=== PATIENT | male | born 1995 | race African-American/Black ===

== ENCOUNTER 2017-01-02 08:47 | Observation (INO) | payer OTHER ==
--- NOTE | ~2017-01-02 | CT2 ---
[facility] A Service of [facility] RADIOLOGY TEXT RESULTS PATIENT: RAO CHEN LOCATION: [facility] [id number] : [birth year] UNIT #: [id number] AGE: [address]: Denis Gregg MD SEX: M ORDER DR: [id number] [facility] [address] [place]. [place], [place] [address] [id number] E MR#: [id number] Acc #: [id number] NAME: RAO CHEN : 1995 SEX: M STUDY DATE/TIME: 01/02/2017 12:02 UNIT: HE ROOM: STUDY DESCRIPTION: CT Abd and Pelv W Cont Attending Physician: Reji Ballard D.O. Ordering Physician: Reji Ballard D.O. Primary Care Physician: No Primary Care Physician MEDICAL IMAGING REPORT This report is preliminary unless electronic signature is present EXAM CT abdomen and pelvis with contrast, 01/02/2017. HISTORY 21-year-old male with right lower quadrant abdominal pain today. COMPARISON None TECHNIQUE Helical scan performed through the abdomen and pelvis following administration of oral and IV contrast. Coronal and sagittal reformatted images. This CT exam was performed with one or more of the following radiation dose reduction techniques: automatic exposure control, adjustment of mA and/or kV according to patient size, and iterative reconstruction. FINDINGS Visualized lung bases are unremarkable. The liver, spleen, pancreas, gallbladder, both adrenal glands, and both kidneys are within normal limits. Abdominal aorta normal in course and caliber without dissection. Small bowel unremarkable without obstruction. The appendix is markedly dilated and fluid-filled. There is a suspected appendicolith within the appendiceal lumen. There is moderately extensive periappendiceal inflammatory stranding and free fluid. No loculated drainable abscess. No evidence of perforation. Colon otherwise unremarkable. The urinary bladder and prostate gland are within normal limits. Small amount of free pelvic fluid. No acute bony abnormality. [facility] A Service of [facility] RADIOLOGY TEXT RESULTS PATIENT: RAO CHEN LOCATION: [facility] 4609-15 : [birth year] UNIT #: [id number] AGE: [address]: Denis Gregg MD SEX: M ORDER DR: IMPRESSION Acute appendicitis. There is moderate free fluid along the right pericolic gutter and extending into the pelvis. No loculated drainable collection to suggest abscess. No evidence of free intraperitoneal air. Dictated by... Janak Watt M.D. THIS IS AN ELECTRONICALLY VERIFIED REPORT Janak Watt M.D. at 01/03/2017 8:57 AM MERARI/dora TD: 01/02/2017 13:06 JOB #: [id number] MEDICAL IMAGING REPORT Page 1 of 1 COPY
--- NOTE | ~2017-01-02 | CO ---
Unit #: [id number] #: [id number] Patient: RAO CHEN [id number] [address] [address] [id number] I MR#: [id number] NAME: RAO CHEN ROOM: 462 Age: 21 Sex: M Admission Date: 01/02/2017 : 1995 Attending Physician: Denis Gregg M.D. Primary Care Physician: Primary Care Physician No Consultation Date: 01/02/2017 CONSULTATION REPORT BRIEF HISTORY OF PRESENT ILLNESS The patient is a 21-year-old gentleman with acute onset of right lower quadrant abdominal pain, some nausea. No vomiting. No diarrhea. No history of similar type pain. PAST MEDICAL HISTORY None. PAST SURGICAL HISTORY None. SOCIAL HISTORY No smoking. No alcohol. FAMILY HISTORY Negative for GI malignancy. REVIEW OF SYSTEMS No cardiopulmonary complaints at this time. Else, 10 systems have been reviewed and negative. PHYSICAL EXAMINATION GENERAL: He is awake, alert, and appropriate. VITAL SIGNS: Currently afebrile. HEENT: Unremarkable. NECK: Supple. No JVD. Trachea midline. LUNGS: Clear to auscultation. Bilateral breath sounds symmetric. CARDIOVASCULAR: Regular rate and rhythm. ABDOMEN: Soft, nontender, and nondistended. I palpate no masses. No hepatosplenomegaly. EXTREMITIES: No clubbing, cyanosis, or edema. DIAGNOSTIC STUDIES LABORATORY RESULTS: Show a white count of 16. IMAGING STUDIES: CT scan shows inflammation in the pericecal region. ASSESSMENT Appendicitis. PLAN Recommend laparoscopic appendectomy. Unit #: [id number] #: [id number] Patient: RAO CHEN Dictated by... Leatha Clancy/clifford TD: 01/02/2017 13:59 JOB #: [id number] CONSULTATION REPORT Page 1 of 1 X Denis Gregg MD X CONSULTATION REPORT
--- NOTE | ~2017-01-02 | OR ---
Unit #: [id number] #: [id number] Patient: RAO CHEN [id number] [address] [address] [id number] [place] MR#: [id number] NAME: RAO CHEN ROOM: 462 Date of Procedure: 01/02/2017 Admission Date: 01/02/2017 Surgeon: Denis Gregg M.D. : 1995 Attending Physician: Denis Gregg M.D. Primary Care Physician: Primary Care Physician No OPERATIVE REPORT PREOPERATIVE DIAGNOSIS Appendicitis. POSTOPERATIVE DIAGNOSIS Purulent appendicitis. PROCEDURE PERFORMED Laparoscopic appendectomy. ANESTHESIA General endotracheal anesthesia. ESTIMATED BLOOD LOSS Minimal. IV FLUIDS 800 crystalloid. COMPLICATIONS None. INDICATIONS FOR PROCEDURE The patient is a 21-year-old with appendicitis. DESCRIPTION OF PROCEDURE The patient was taken to the operating theater and placed in the supine position. General anesthesia was induced. The abdomen was prepped and draped. An infraumbilical incision was then made. A Veress needle was placed intra-abdominally. The abdomen was insufflated to 15 mmHg with CO2. Under direct vision, I placed a 5-mm port. The patient was then placed in Trendelenburg. I placed right lower quadrant 10 mm, left lower quadrant 5 mm ports. General inspection of the abdomen revealed acute appendicitis with purulence. This was retrocecal. I mobilized the colon with Bovie electrocautery. I was able to take the appendix down in a retrograde fashion. I fired a KASSIE stapler across the mesoappendix and appendix and then the inflammatory tissue along the lateral sidewall of the ascending colon. This was then placed in an Endobag and removed. I then removed the ports and closed the fascia with 0 Vicryl and skin with 4-0 Vicryl. The patient tolerated the procedure well and was sent to recovery room in good condition. Unit #: [id number] #: [id number] Patient: RAO CHEN Dictated by... Leatha Clancy/clifford TD: 01/02/2017 16:12 JOB #: [id number] OPERATIVE REPORT Page 1 of 1 X Denis Gregg MD PROCEDURE OPERATIVE NOTE
[2017-01-02 10:16] LABS: BASOPHIL% 0.2 % (0-2.5); HEMATOCRIT 44.6 % (38.0-50.0); HEMOGLOBIN 14.4 gm/dL (13.0-16.0); LYMPHOCYTE# 0.9 X10e3 (1.0-3.5); LYMPHOCYTE% 5.3 % (17.0-45.0); MEAN CELL VOLUME 80.8 FL (83-96); MEAN CORPUSCULAR HGB CONC 32.2 g/dL (30-36); MEAN PLATELET VOLUME 9.4 FL (6.5-11.5); MONOCYTE# 0.8 X10e3 (0-1.0); MONOCYTE% 4.7 % (3.0-12.0); NEUTROPHIL# 14.7 X10e3 (1.5-7.1); NEUTROPHIL% 89.8 % (40-75); RED BLOOD COUNT 5.51 X10e (3.90-5.60); RED CELL DISTRIBUTION WIDTH 13.4 % (11.0-15.5); WHITE BLOOD COUNT 16.4 X10e3 (4.0-10.5)
[2017-01-02 10:17] LABS: DIFF IND YES
[2017-01-02 10:46] LABS: ALBUMIN SERUM 5.1 g/dL (3.5-5.0); BILIRUBIN, DIRECT 0.2 mg/dL (0.0-0.2); BILIRUBIN,INDIRECT 1.8 mg/dL (0.0-0.9); CALCIUM SERUM 9.7 mg/dL (8.4-10.2); POTASSIUM 3.4 mmol/L (3.5-5.1); PROTEIN TOTAL SERUM 8.2 g/dL (6.0-8.3)
[2017-01-02 10:47] LABS: URINE SOURCE CLEAN CATCH
[2017-01-02 10:58] LABS: PLATELET ESTIMATE NORMAL (NORMAL); RBC NORMAL YES; VACUOLIZATION SL
[2017-01-02 10:59] LABS: PLATELET COUNT 258 X10e3 (140-420)
[2017-01-02 11:07] LABS: URINE APPEARANCE CLEAR; URINE BILIRUBIN NEG (NEG); URINE BLOOD NEG (NEG); URINE COLOR YELLOW; URINE GLUCOSE NEG (NEG); URINE KETONE 1+ (NEG); URINE LEUKOCYTE ESTERASE NEG (NEG); URINE NITRATE NEG (NEG); URINE PROTEIN TRACE (NEG); URINE SPECIFIC GRAVITY 1.024 (1.003-1.035)
[2017-01-02 12:02] LABS: CULTURE INDICATED? NO
[2017-01-02] MEDS ORDERED: NO MEDICATIONS (17:48)
[2017-01-03] MEDS ORDERED: LORCET HD 10-31 EACH PO (07:10)
== END 2017-01-03 10:20 | disposition home or self-care (01) ==
LOC: CED 08:47 → CSUR 14:24 → C4C 15:19 → CPACUOF 15:19 → C4C 16:43
PROVIDERS: Emergency Medicine; Surgery
PROC: 0DTJ4ZZ Resection of Appendix, Percutaneous Endoscopic Approach (ICD-10-PCS; principal; 2017-01-02 14:06)
DX: K35.80 Unspecified acute appendicitis (principal); Z79.899 Other long term (current) drug therapy
CPT/HCPCS: 36415; 74177; 80048; 80076; 81003; 83690; 85025; 88304; 96361; 96374; 96375; 96376; 99285; G0378; J0330; J1100; J1885; J2250; J2270; J2405; J2543; J2710; J2765; Q9967

== ENCOUNTER → 2017-01-17 | Outpatient (CLI) | payer OTHER ==
[~2017-01-17] MED LIST: LORCET HD 10-31 EACH PO; NO MEDICATIONS
--- NOTE | ~2017-01-17 | CT4 ---
[facility] A Service of [facility] RADIOLOGY TEXT RESULTS PATIENT: RAO CHEN LOCATION: [facility] : 96 UNIT #: [id number] AGE: [address]: Denis Gregg MD SEX: M ORDER DR: [id number] [facility] [address] [facility]. [place], [place] [address] [id number] O MR#: [id number] Acc #: [id number] NAME: RAO CHEN : 1995 SEX: M STUDY DATE/TIME: 01/17/2017 15:32 UNIT: [facility] ROOM: STUDY DESCRIPTION: CT Abd and Pelv Wo Cont Attending Physician: Denis Gregg M.D. Referring Physician: Denis Gregg M.D. Ordering Physician: Denis Gregg M.D. MEDICAL IMAGING REPORT This report is preliminary unless electronic signature is present EXAM CT abdomen and pelvis without contrast INDICATIONS Status post appendectomy 01/02/2017. Mid abdominal pain and vomiting for the past week. TECHNIQUE Unenhanced CT of the abdomen and pelvis. This CT exam was performed with one or more of the following radiation dose reduction techniques: automatic exposure control, adjustment of mA and/or kV according to patient size, and iterative reconstruction. COMPARISON 01/02/2017. FINDINGS ABDOMEN WITHOUT CONTRAST: Included lung bases are clear. Liver, spleen, kidneys, adrenal glands, pancreas, gallbladder unremarkable. The bowel loops are non-dilated. Patient is status post appendectomy. There is infiltration in the fat around the right lower quadrant of the abdomen but no organized collection. PELVIS WITHOUT CONTRAST: There is a small, thick-walled collection in the rectovesical space that measures 2.7 cm. It is new compared to the prior. No aggressive appearing bone lesion. IMPRESSION 1. Previous appendectomy. 2. Infiltration within the fat of the right lower quadrant may represent [facility] A Service of [facility] RADIOLOGY TEXT RESULTS PATIENT: RAO CHEN LOCATION: [facility] : [birth year] UNIT #: [id number] AGE: [address]: Denis Gregg MD SEX: M ORDER DR: residual inflammatory change or postoperative change. No organized collection in this region. 3. There is a thick-walled collection in the rectovesical space measures 2.7 cm, in keeping with a small abscess. Dictated by... Himanshu Gonzales M.D. THIS IS AN ELECTRONICALLY VERIFIED REPORT Himanshu Gonzales M.D. at 01/19/2017 2:28 PM EED/pcl TD: 01/17/2017 20:16 JOB #: [id number] MEDICAL IMAGING REPORT Page 1 of 1 COPY
== END | disposition home or self-care (01) ==
LOC: CCAT 14:45
DX: R10.9 Unspecified abdominal pain (principal); R11.10 Vomiting, unspecified; R93.3 Abnormal findings on diagnostic imaging of other parts of digestive tract; Z98.890 Other specified postprocedural states; Z90.49 Acquired absence of other specified parts of digestive tract
CPT/HCPCS: 74176